=== PATIENT | female | born 1975 | race American Indian/Alaskan Native ===

== ENCOUNTER 2017-03-05 21:27 | Emergency (ER) | payer MEDICAID ==
[2017-03-05 22:08] VITALS: BP 132/87
[2017-03-05 23:13] LABS: Basophils % (Auto) 0.5 % (0.0-1.8); Eosinophils % (Auto) 0.6 % (0.0-4.3); Hematocrit 36.1 % (30.3-42.9); Hemoglobin 11.3 gm/dl (10.1-14.3); Mean Corpuscular HGB Conc 31 % (30-34); Mean Corpuscular Hemoglobin 26 pg (28-32); Mean Corpuscular Volume 83 fl (79-97); Platelet Count 356 K/mm3 (140-440); Red Blood Count 4.34 M/mm3 (3.65-5.03)
[2017-03-05 23:33] LABS: Alanine Aminotransferase 9 units/L (7-56); Albumin/Globulin Ratio 0.9 %; Alkaline Phosphatase 58 units/L (35-129); Anion Gap 20 mmol/L; BUN/Creatinine Ratio 12.85; Blood Urea Nitrogen 9 mg/dL (7-17); Calcium 8.6 mg/dL (8.4-10.2); Carbon Dioxide 20 mmol/L (22-30); Chloride 99.1 mmol/L (98-107); Glucose 104 mg/dL (65-100); Lipase 23 units/L (13-60); Potassium 4.4 mmol/L (3.6-5.0); Sodium 135 mmol/L (137-145); Total Protein 8.4 g/dL (6.3-8.2)
== END 2017-03-06 04:00 | disposition left against medical advice (07) ==
LOC: ED 21:27
DX: R10.9 Unspecified abdominal pain (principal); Z53.21 Procedure and treatment not carried out due to patient leaving prior to being seen by health care provider
CPT/HCPCS: 36415; 80053; 83690; 84703; 85025

== ENCOUNTER 2017-12-20 11:00 | Outpatient (CLI) | payer MEDICAID | END 2017-12-20 11:01 | disposition home or self-care (01) | LOC: SLR 11:00 | PROVIDERS: ATTEND Otolaryngology | DX: G47.33 Obstructive sleep apnea (adult) (pediatric) (principal) | CPT/HCPCS: G0399 ==

== ENCOUNTER 2018-01-10 11:00 | Outpatient (CLI) | payer MEDICAID | END 2018-01-10 11:01 | disposition home or self-care (01) | LOC: SLR 11:00 | PROVIDERS: ATTEND Otolaryngology | DX: G47.33 Obstructive sleep apnea (adult) (pediatric) (principal); R40.0 Somnolence | CPT/HCPCS: G0399 ==

== ENCOUNTER 2018-12-16 08:26 | Day surgery (SDC) | payer MEDICAID ==
--- NOTE | 2018-12-16 07:41 | Anesthesia Consultation ---
Anesthesia Consult and Med Hx - Airway Anesthetic Teeth Evaluation: Edentulous ROM Head & Neck: Adequate Mental/Hyoid Distance: Adequate Mallampati Class: Class III Intubation Access Assessment: Probably Good - Pulmonary Exam CTA: Yes - Cardiac Exam Cardiac Exam: RRR - Pre-Operative Health Status ASA Pre-Surgery Classification: ASA3 Proposed Anesthetic Plan: General (Patient for part placement, HX of ESR, HTN, DM, Dementia. no iv access , will use dialysis port as patient arm swollwn and not cooperating to place IV. ) - Pulmonary SOB: Yes - Central Nervous System Hx Back Pain: Yes
[~2018-12-16 08:26] MED LIST: NACL 0.9% 1000 ML 1,000 ML IV SCH
[2018-12-16] MEDS ORDERED: DIPRIVAN 10 MG/ML IV ONE (11:31)
[2018-12-16] MEDS ORDERED: WATER FOR IRRIG STERILE IR ONE (11:36)
--- NOTE | 2018-12-16 11:54 | Anesthesia Day of Surgery ---
Anesthesia Day of Surgery - Day of Surgery Patient Examined: Yes Patient H&P Reviewed: Yes Patient is NPO: Yes
--- NOTE | 2018-12-16 11:57 | Anesthesia Consultation ---
Anesthesia Consult and Med Hx Date of service: 12/16/18 - Airway Anesthetic Teeth Evaluation: Good ROM Head & Neck: Adequate Mental/Hyoid Distance: Adequate Mallampati Class: Class III Intubation Access Assessment: Possibly Difficult - Pre-Operative Health Status ASA Pre-Surgery Classification: ASA3 Proposed Anesthetic Plan: MAC - Pulmonary SOB: Yes - Central Nervous System Hx Back Pain: Yes Hx Psychiatric Problems: Yes (depression) - Endocrine Hx Non-Insulin Dependent Diabetes: Yes - Other Systems Hx Obesity: Yes (BMI 35.7)
[2018-12-16 12:16] VITALS: BP 122/78
== END 2018-12-16 08:27 | disposition home or self-care (01) ==
LOC: GIO 08:26
PROVIDERS: ATTEND Specialist
DX: K21.0 Gastro-esophageal reflux disease with esophagitis (principal); K44.9 Diaphragmatic hernia without obstruction or gangrene; E66.01 Morbid (severe) obesity due to excess calories; K30 Functional dyspepsia; E11.9 Type 2 diabetes mellitus without complications; F32.9 Major depressive disorder, single episode, unspecified; Z68.35 Body mass index [BMI] 35.0-35.9, adult
CPT/HCPCS: 43235; 81025; 88305; 88342; J2704; J7030

== ENCOUNTER 2018-12-23 06:02 | Observation (INO) | payer MEDICAID ==
[~2018-12-23 06:02] MED LIST changes: +ANCEF/STERILE WATER 2 GM/20 ML 2 GM/20 ML SYRINGE IV NR; +APRESOLINE IV PRN; +FLAGYL 500 MG/100 ML 500 MG/100 ML BAG IV NR; +LOVENOX SUB-Q NR; +MORPHINE IV PRN; -NACL 0.9% 1000 ML 1,000 ML IV SCH; +NORCO PO PRN; +REGLAN IV PRN; +TRANSDERM-SCOP TD SCH; +ZOFRAN IV PRN
[2018-12-23] MEDS ORDERED: XYLOCAINE 1% 20 mL ONE (07:40)
[2018-12-23] MEDS ORDERED: MARCAINE-EPI 0.5%-1:200,000 INFILTRATI ONE ×2 (07:40→10:33)
[2018-12-23] MEDS ORDERED: XYLOCAINE MPF 2% ONE (08:04)
[2018-12-23] MEDS ORDERED: ZEMURON IV ONE (08:04)
[2018-12-23] MEDS ORDERED: SUBLIMAZE IV PRN (08:09)
--- NOTE | 2018-12-23 08:12 | Anesthesia Day of Surgery ---
Anesthesia Day of Surgery - Day of Surgery Patient Examined: Yes Patient H&P Reviewed: Yes Patient is NPO: Yes
--- NOTE | 2018-12-23 08:12 | Anesthesia Consultation ---
Anesthesia Consult and Med Hx Date of service: 12/23/18 - Airway Anesthetic Teeth Evaluation: Good ROM Head & Neck: Adequate Mental/Hyoid Distance: Adequate Mallampati Class: Class II Intubation Access Assessment: Probably Good - Pulmonary Exam CTA: Yes - Cardiac Exam Cardiac Exam: RRR - Pre-Operative Health Status ASA Pre-Surgery Classification: ASA3 Proposed Anesthetic Plan: General - Pulmonary Hx Smoking: No Hx Respiratory Symptoms: No Hx Sleep Apnea: Yes (compliant with CPAP) - Cardiovascular System Hx Hypertension: No Hx Heart Attack/AMI: No - Central Nervous System Hx Seizures: No CVA: No Hx Back Pain: Yes Hx Psychiatric Problems: Yes (depression) - Gastrointestinal Hx Gastroesophageal Reflux Disease: No - Endocrine Hx Renal Disease: No Hx Liver Disease: No Hx Insulin Dependent Diabetes: No Hx Non-Insulin Dependent Diabetes: No (noted in chart but patient denies) Hx Thyroid Disease: No - Hematic Hx Anemia: Yes (HGB/HCT 9.8/31.1 (12/11/18)) - Other Systems Hx Obesity: Yes - Additional Comments Anesthesia Medical History Comments: No hx anesthetic complications.
[2018-12-23] MEDS: LACTATED RINGERS 1,000 ML IV SCH (08:30)
[2018-12-23 08:31] LABS: Bilirubin,Urine NEG (Negative); Blood,Urine NEG (Negative); Color,Urine Amber (Yellow); Mucus,Urine 3+ /HPF; Urobilinogen,Urine < 2.0 mg/dL (<2.0)
[2018-12-23] MEDS ORDERED: LOVENOX SUB-Q NR (09:00)
[2018-12-23] MEDS ORDERED: FLAGYL 500 MG/100 ML 500 MG/100 ML BAG IV NR (09:00)
[2018-12-23] MEDS ORDERED: ANCEF/STERILE WATER 2 GM/20 ML 2 GM/20 ML SYRINGE IV NR (09:00)
[2018-12-23] MEDS ORDERED: TRANSDERM-SCOP TD SCH (09:00)
[2018-12-23] MEDS ORDERED: VERSED IV NR (09:22)
[2018-12-23] MEDS ORDERED: SUBLIMAZE ONE (09:46)
[2018-12-23] MEDS ORDERED: DIPRIVAN 10 MG/ML IV ONE (09:47)
[2018-12-23] MEDS ORDERED: NACL 0.9% IR ONE ×2 (10:34→10:35)
[2018-12-23] MEDS ORDERED: XYLOCAINE 1% 20 mL INFILTRATI ONE (10:34)
[2018-12-23] MEDS ORDERED: ZOFRAN ONE (10:44)
[2018-12-23] MEDS ORDERED: ROBINUL ONE (10:44)
[2018-12-23] MEDS ORDERED: DECADRON ONE (10:44)
[2018-12-23] MEDS ORDERED: QUELICIN ONE (10:44)
[2018-12-23] MEDS ORDERED: NEO SYNEPHRINE/NS Syringe(OR USE) IV ONE (10:44)
[2018-12-23] MEDS ORDERED: BREVIBLOC IV ONE (10:44)
[2018-12-23] MEDS ORDERED: TORADOL ONE (10:44)
[2018-12-23] MEDS ORDERED: BLOXIVERZ ONE (10:44)
[2018-12-23] MEDS ORDERED: LACTATED RINGERS 1,000 ML ONE (11:00)
[2018-12-23] MEDS ORDERED: REGLAN ONE (11:38)
[2018-12-23] MEDS: MYLICON PO PRN (12:12)
[2018-12-23] MEDS ORDERED: MYLICON ONE (12:14)
--- NOTE | 2018-12-23 14:29 | Operative Report ---
SURGEON: Raman Colunga M.D. MERCHANDISE FLOW MANAGER: Kang Han M.D. Fellow, Dexter Gonzalez CSA PREOPERATIVE DIAGNOSIS: Morbid obesity. POSTOPERATIVE DIAGNOSIS: Morbid obesity. OPERATIONS: 1. Laparoscopic sleeve gastrectomy. 2. Laparoscopic hiatal hernia repair. ANESTHESIA: General endotracheal anesthesia. COMPLICATIONS: None. BLEEDING: Less than 10 mL. SPECIMENS: Gastric remnant. INDICATIONS: The patient is a 43-year-old female with a history of morbid obesity. She has undergone preoperative bariatric workup and presents for her planned operation. The risks, complications, and alternatives have been explained to the patient and informed consent was obtained. DESCRIPTION OF PROCEDURE: The patient was brought to the operating suite, where she was placed in the supine position and underwent general endotracheal intubation. She received preoperative antibiotics and DVT prophylaxis. A timeout was called to ensure proper patient, indication, operation and then she was prepped and draped in the usual sterile fashion. Local analgesia was injected around the umbilical region and then a small stab incision was made at the base with insertion of a Veress needle. Insufflation pressures were achieved to 15 mmHg, and then the incision was widened and a 15 mm trocar was placed. On intra-abdominal view, there was no injury. Additional 5 mm ports were placed in the right lateral subxiphoid and left lateral quadrants. The patient was repositioned in steep reverse Trendelenburg and a liver retractor was then inserted. A hiatal dissection was first done revealing a small hiatal hernia. The angle of His was dissected free. The greater curvature of the stomach was then from the gastrocolic ligament using a LigaSure device and continued antegrade for about 6 cm from the duodenum. Anesthesia placed a 40-Kazakh bougie and then the sleeve gastrectomy was then performed utilizing several staple loads. The staple line was cauterized after each fire load for hemostasis. After this, an anterior cruroplasty was then done with a 0 Surgidac suture in a U-stitch fashion. The remnant was removed from the umbilical port site and then a liter of normal saline was instilled into the left and right upper quadrant to help with postoperative gas pain. The umbilical fascia was closed with a #1 PDS in a Guille-Raghav fashion. Additional local was injected into all the port sites and then the incisions were closed with 4-0 Monocryl. Sterile bandages were placed over the top of all the incisions. The patient was then extubated and left the operating room in stable condition. Counts were correct. FINDINGS: Small hiatal hernia. JOB# [id number] MICHELLE/NILS BOYCE
--- NOTE | 2018-12-23 15:31 | Post Anesthesia Evaluation ---
- Post Anesthesia Evaluation Patient Participated: Yes Airway Patent: Yes Stable Respiratory Function: Yes Nausea/Vomiting: No Temp > 96.8F: Yes Pain Manageable: Yes Adequeate Hydration: Yes Anesthesia Complications: No
[2018-12-23] MEDS: DILAUDID IV PRN (18:21)
[2018-12-24] MEDS: DILAUDID IV PRN ×2 (03:22→09:42)
[2018-12-24 05:16] VITALS: BP 108/52
[2018-12-24 05:17] LABS: Basophils % (Auto) 0.3 % (0.0-1.8); Hematocrit 28.8 % (30.3-42.9); Hemoglobin 9.4 gm/dl (10.1-14.3); Lymphocytes # (Auto) 1.5 K/mm3 (1.2-5.4); Lymphocytes % (Auto) 14.2 % (13.4-35.0); Mean Corpuscular HGB Conc 33 % (30-34); Mean Corpuscular Volume 80 fl (79-97); Monocytes # (Auto) 0.9 K/mm3 (0.0-0.8); Platelet Count 363 K/mm3 (140-440); Red Blood Count 3.58 M/mm3 (3.65-5.03); Red Cell Distribution Width 16.2 % (13.2-15.2)
[2018-12-24] MEDS: LACTATED RINGERS 1,000 ML IV SCH (05:27)
[2018-12-24 05:39] LABS: BUN/Creatinine Ratio 11; Blood Urea Nitrogen 9 mg/dL (7-17); Calcium 8.3 mg/dL (8.4-10.2); Hemolysis Index 2
--- NOTE | 2018-12-24 07:10 | Discharge Summary ---
Providers - Providers Date of Admission: 12/23/18 11:30 Date of discharge: 12/24/18 Attending physician: JED COLUNGA Primary care physician: KACIE MEDELLIN Hospitalization Reason for admission: postop Condition: Good Procedures: 12/23/18: Laparoscopic sleeve gastrectomy Hospital course: 43Fadmitted after her operation for routine care. She was managed on the general surgical floor. She had no issues overnight, ambulated, and tolerated a CLD. She was given an abdominal binder for home and dc. Disposition: DC-01 TO HOME OR SELFCARE Core Measure Documentation - Palliative Care Palliative Care/ Comfort Measures: Not Applicable - Core Measures Any of the following diagnoses?: none - VTE Discharge Requirements Deep Vein Thrombosis/Pulmonary Embolism Present on Admission: No - Acute MS Discharge Requirements Aspirin at discharge: No Reason for no aspirin on DC: Surgical contraindication - Heart Failure Discharge Requirements HERMINIA/ARB for LVSD if EF <40%: Not Applicable - Stroke Discharge Requirements Statin for LDL = or >70 mg/dl on DC: Not Applicable Exam - Physical Exam Narrative exam: Gen: AAO, NAD Heart: RRR Lungs: Clear Abd: Soft, MO, NT, ND. Bandages c/d/i. - Constitutional Vitals: Temp Pulse Resp BP Pulse Ox 98.4 F 65 17 108/52 94 12/24/18 05:14 12/24/18 05:14 12/24/18 05:14 12/24/18 05:14 12/24/18 05:14 Plan Diet: clear liquids Wound: keep clean and dry Special Instructions: no heavy lifting Additional Instructions: Peter Colunga as scheduled Follow up with: KACIE MEDELLIN MD [Primary Care Provider] - 7 Days
[2018-12-24] MEDS: MYLICON PO PRN (09:27)
[2018-12-24] MEDS ORDERED: LOVENOX SUB-Q SCH (10:00)
== END 2018-12-24 12:30 | disposition home or self-care (01) ==
LOC: OR 06:02 → 3B-SURG 11:30
PROVIDERS: ADMIT Specialist; ATTEND Specialist
DX: E66.01 Morbid (severe) obesity due to excess calories (principal); F51.04 Psychophysiologic insomnia; K59.09 Other constipation; F32.9 Major depressive disorder, single episode, unspecified; R06.02 Shortness of breath; K21.9 Gastro-esophageal reflux disease without esophagitis; M79.7 Fibromyalgia; F34.1 Dysthymic disorder; Z98.890 Other specified postprocedural states
CPT/HCPCS: 36415; 43280; 43775; 80048; 81001; 81025; 85025; 88307; 88342; 96372; 96374; 96375; 96376; A4217; G0378; J0330; J0690; J1100; J1170; J1650; J1885; J2250; J2270; J2370; J2405; J2704; J2710; J2765; J3010; J7120; 88309

== ENCOUNTER 2019-01-09 08:53 | Outpatient (CLI) | payer MEDICAID ==
[2019-01-09 10:04] LABS: Blood Urea Nitrogen 10 mg/dL (7-17)
--- NOTE | 2019-01-09 11:04 | Cat Scan Report ---
CT CHEST WITH CONTRAST INDICATION: Malignant neoplasm of stomach. COMPARISON: None similar. FINDINGS: Chest CT performed following intravenous administration of 100 cc of Omnipaque 300. Normal heart size. No effusions. No aortic aneurysm or dissection. Borderline pulmonary arterial hypertension without suspicious central pulmonary arterial filling defects, to the extent assessed. Patent central airway. No size significant adenopathy. Normal imaged thyroid. Clear lungs. Nonspecific distal esophageal prominence/thickening in this patient with gastric post surgical changes/staple line. No other significant finding in the imaged upper abdomen. No focal aggressive osseous lesions. CONCLUSION: No acute chest CT abnormality with few other findings, as above. Please correlate. Thank you for the opportunity to participate in this patient's care.
== END 2019-01-09 08:54 | disposition home or self-care (01) ==
LOC: CT 08:53
PROVIDERS: ATTEND Specialist
DX: C16.9 Malignant neoplasm of stomach, unspecified (principal); E11.9 Type 2 diabetes mellitus without complications; E66.9 Obesity, unspecified
CPT/HCPCS: 36415; 71260; 82565; 84520; Q9967

== ENCOUNTER 2019-01-14 20:42 | Emergency (ER) | payer MEDICAID ==
--- NOTE | 2019-01-14 21:26 | Event Note ---
ED Screening Note Date of service: 01/14/19 Time: 21:16 ED Screening Note: 43 y/o femal comes in for abd pain. Recently had a gastro selve 12/23/18. Last Saturday had a CT. This initial assessment/diagnostic orders/clinical plan/treatment(s) is/are subject to change based on patients health status, clinical progression and re- assessment by fellow clinical providers in the ED. Further treatment and workup at subsequent clinical providers discretion. Patient/guardian urged not to elope from the ED as their condition may be serious if not clinically assessed and managed. Initial orders include:
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
[2019-01-14 22:04] LABS: Basophils % (Auto) 0.2 % (0.0-1.8); Eosinophils # (Auto) 0.1 K/mm3 (0.0-0.4); Eosinophils % (Auto) 1.7 % (0.0-4.3); Hematocrit 32.7 % (30.3-42.9); Hemoglobin 10.7 gm/dl (10.1-14.3); Lymphocytes # (Auto) 2.5 K/mm3 (1.2-5.4); Lymphocytes % (Auto) 48.7 % (13.4-35.0); Mean Corpuscular HGB Conc 33 % (30-34); Mean Corpuscular Volume 81 fl (79-97); Monocytes # (Auto) 0.6 K/mm3 (0.0-0.8); Monocytes % (Auto) 10.8 % (0.0-7.3); Platelet Count 322 K/mm3 (140-440); Red Blood Count 4.06 M/mm3 (3.65-5.03)
[2019-01-14 22:30] LABS: Alanine Aminotransferase 10 units/L (7-56); BUN/Creatinine Ratio 10; Blood Urea Nitrogen 8 mg/dL (7-17); Calcium 9.3 mg/dL (8.4-10.2); Hemolysis Index 4
[2019-01-14 22:56] LABS: Bilirubin,Direct < 0.2 mg/dL (0-0.2)
--- NOTE | 2019-01-14 23:16 | XRay Report ---
ACUTE ABDOMEN SERIES, 3 VIEWS HISTORY: Abdominal pain, status post gastric bypass surgery COMPARISON: Chest CT, 01/09/2019 FINDINGS: Chest: The cardiac silhouette is normal in size. The lungs are clear. Abdomen: Bowel: No dilated bowel loops. No abnormal air-fluid levels. Moderate amount retained stool is noted throughout the colon. There is mild gaseous prominence of small bowel loops within the central abdom en. Free air: None. Calcifications: No suspicious calcifications. Osseous Structures: No significant osseous abnormality. Support hardware: None. Additional findings: Suture lines are seen in the left upper quadrant consistent with provided histor y of gastric bypass surgery.. IMPRESSION: 1. Slightly abnormal bowel gas pattern. I suspect the mild prominence of central small bowel loops a re secondary to the large amount of stool seen throughout the colon consistent with constipation. Ple ase correlate clinically. 2. No acute findings within the thorax. Signer Name: Anai Person MD Signed: 01/14/2019 11:11 PM Workstation Name: [id number]
[2019-01-14 23:19] LABS: Bacteria,Urine 1+ /HPF (Negative); Bilirubin,Urine NEG (Negative); Blood,Urine NEG (Negative); Color,Urine Yellow (Yellow); Mucus,Urine 3+ /HPF; Urobilinogen,Urine < 2.0 mg/dL (<2.0)
[2019-01-14] MEDS ORDERED: NACL 0.9% 1000 ML 1,000 ML IV ONE (23:23)
--- NOTE | 2019-01-15 01:29 | Cat Scan Report ---
CTA CHEST WITH IV CONTRAST INDICATION / CLINICAL INFORMATION: SOb, elevated dimers. TECHNIQUE: Axial CT images were obtained through the chest after injection of 100 cc IV contrast. 3 plane MIP an d/or 3D reconstructions were produced. All CT scans at this location are performed using CT dose redu ction for [facility] by means of automated exposure control. COMPARISON: 01/09/[address] FINDINGS: PULMONARY ARTERIES: No pulmonary emboli. THORACIC AORTA: No significant abnormality. HEART: No significant abnormality. CORONARY ARTERIES: No significant calcification. PLEURA: No pleural effusion. No pneumothorax. LYMPH NODES: No significant adenopathy. LUNGS: No acute air space or interstitial disease. ADDITIONAL FINDINGS: None. UPPER ABDOMEN: No acute findings. Evidence of prior gastric surgery SKELETAL STRUCTURES: No significant osseous abnormality. IMPRESSION: 1. No CT evidence for pulmonary embolism. 2. No acute findings. Signer Name: Anai Person MD Signed: 01/15/2019 1:24 AM Workstation Name: [id number]
--- NOTE | 2019-01-15 01:39 | Cat Scan Report ---
CT abdomen pelvis w con INDICATION / CLINICAL INFORMATION: Abd pain, hx of gastric sleeve. TECHNIQUE: Axial CT imaging of abdomen and pelvis was performed with both IV and oral contrast. Coronal and sagi ttal reformatted imaging obtained and reviewed. All CT scans at this location are performed using CT dose reduction for [place] by means of automated exposure control. COMPARISON: None available. FINDINGS: CT abdomen with contrast demonstrates normal appearance of the liver, spleen, pancreas, kidneys, and adrenal glands. No obvious gallbladder abnormality or biliary dilatation. Prior gastric surgery is no sukhdeep. GI tract is unremarkable. No abnormally dilated loops of bowel. No free air or free fluid. CT pelvis with contrast demonstrates normal appearance of the appendix. The uterus is mildly enlarged . 2 cm nabothian cyst present within the cervix. There is trace amount of free fluid in the posterior cul-de-sac. No pelvic mass noted. Moderate amount of stool is noted throughout the colon. No significant osseous abnormality. IMPRESSION: 1. No acute abnormality noted within the abdomen or pelvis. More specifically I see no abnormality re lated to recent gastric surgery. 2. Trace free fluid in the posterior cul-de-sac likely of no clinical significance. 3. Moderate amount retained stool throughout the colon suggesting mild constipation. Signer Name: Anai Person MD Signed: 01/15/2019 1:35 AM Workstation Name: [id number]
[2019-01-15 02:45] VITALS: BP 109/58
== END 2019-01-15 02:30 | disposition home or self-care (01) ==
LOC: ED 20:42
DX: R06.02 Shortness of breath (principal); R00.2 Palpitations; K59.00 Constipation, unspecified; E86.0 Dehydration; Z98.84 Bariatric surgery status; Z98.890 Other specified postprocedural states
CPT/HCPCS: 36415; 71275; 74022; 74177; 80048; 80076; 81001; 83690; 83880; 84443; 84484; 84703; 85025; 85379; 93005; 93010; 99285; J7030; Q9967; 96360

== ENCOUNTER 2019-06-02 23:33 | Emergency (ER) | payer MEDICAID ==
[2019-06-03 01:01] LABS: Eosinophils # (Auto) 0.1 K/mm3 (0.0-0.4); Eosinophils % (Auto) 1.3 % (0.0-4.3); Hematocrit 33.4 % (30.3-42.9); Hemoglobin 10.7 gm/dl (10.1-14.3); Lymphocytes # (Auto) 2.3 K/mm3 (1.2-5.4); Lymphocytes % (Auto) 47.4 % (13.4-35.0); Mean Corpuscular HGB Conc 32 % (30-34); Mean Corpuscular Volume 81 fl (79-97); Monocytes # (Auto) 0.4 K/mm3 (0.0-0.8); Monocytes % (Auto) 9.1 % (0.0-7.3); Platelet Count 332 K/mm3 (140-440); Red Blood Count 4.15 M/mm3 (3.65-5.03)
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
[2019-06-03 01:27] LABS: Alanine Aminotransferase 7 units/L (7-56); Albumin 4.5 g/dL (3.9-5); BUN/Creatinine Ratio 10; Blood Urea Nitrogen 7 mg/dL (7-17); Calcium 9.4 mg/dL (8.4-10.2); Hemolysis Index 27
[2019-06-03] MEDS ORDERED: POTASSIUM CHLORIDE ER 20 MEQ TAB PO ONE (01:34)
--- NOTE | 2019-06-03 03:08 | XRay Report ---
Chest and abdominal series. 06/03/2019. HISTORY: Abdominal pain. Chest one view: Heart size is normal. The lungs are clear. Two-view abdomen: Gas is scattered throughout the abdomen in a nonobstructive fashion. Negative for f ree air, constipation or suspicious calcification. Previous gastric surgery. Signer Name: Bryant Agrawal MD Signed: 06/03/2019 3:04 AM Workstation Name: [id number]
[2019-06-03 03:32] LABS: Bacteria,Urine 1+ /HPF (Negative); Bilirubin,Urine NEG (Negative); Blood,Urine NEG (Negative); Color,Urine Yellow (Yellow); Mucus,Urine 3+ /HPF
[2019-06-03] MEDS ORDERED: SODIUM CHLORIDE 0.9% 1000 ML 1,000 ML IV ONE (03:47)
[2019-06-03 06:18] VITALS: BP 118/60
== END 2019-06-03 06:18 | disposition home or self-care (01) ==
LOC: ED 23:33
DX: E86.0 Dehydration (principal); R14.2 Eructation; R06.02 Shortness of breath; Z98.890 Other specified postprocedural states
CPT/HCPCS: 36415; 74022; 80053; 81001; 84443; 84703; 85025; 93005; 93010; 96360; 99284; J7030